=== PATIENT | female | born 1970 | race Hispanic/Latino ===

== ENCOUNTER 2023-04-02 11:31 | Emergency (ER) | payer MEDICAID, SELFPAY ==
[2023-04-02 11:40] VITALS: BP 141/91; PULSE 74; RESP 16; TEMP 36.6; O2SAT 98
--- NOTE | 2023-04-02 12:16 | ED.DIZZY ---
HPI - Dizziness General Chief Complaint: Dizziness Stated Complaint: Dizzy; Ringin in ears; Blurred vision Time Seen by Provider: 04/02/23 12:25 Source: patient Mode of arrival: ambulatory Limitations: language barrier (Rendering Equipment Tender used) History of Present Illness HPI Narrative: 52-year-old female presents with concern for 2 week history of it is sinus pressure, dizziness, ringing in the ears it is, blurred vision. She reports only symptom she is having right now is ringing in the ears. She says heat makes his symptoms worse, fracture helps the symptoms. She reports she has been staying well hydrated. She has a primary care provider. She reports she has never been diagnosed with high blood pressure or told she has had high blood pressure. She has taken ibuprofen for her symptoms without relief. She denies unilateral weakness, thunderclap headache MD elicited complaint: dizziness and other (Tinnitus) Related Data Allergies Allergy/AdvReac Type Severity Reaction Status Date / Time No Known Allergies Allergy Verified 04/02/23 11:35 Review of Systems Review of Systems: CONSTITUTIONAL: Denies malaise, chills, sweats, or fever. EYES: Reports blurry vision. Denies redness or discharge. ENT: Reports rhinorrhea, congestion, ringing in the ears. Denies sinus pain, otalgia or sore throat. Reports tinnitus CARDIOVASCULAR: Denies chest pain, palpitations, or edema. RESPIRATORY: Denies cough or dyspnea. GASTROINTESTINAL: Denies abdominal pain, nausea, vomiting, diarrhea GENITOURINARY: Denies dysuria or hematuria. Reports urine frequency SKIN: Denies rash or itching. MUSCULOSKELETAL: Denies back pain, joint pain. Reports myalgia. NEUROLOGIC: Denies numbness, weakness, or headache. Reports lightheadedness PSYCHIATRIC: Denies anxiety or depression. All systems reviewed & are unremarkable except as noted in HPI and below PMFSH Comments At time of signature, agree with nursing past medical, surgical, social and family history. There is no relevant family history pertinent to the presenting complaint Exam Narrative: GENERAL: Well-appearing, well-nourished, and in no acute distress. HEAD: Normocephalic, atraumatic. EYES: PERRLA, sclera clear, and EOMI. No nystagmus. ENT: Nares clear, turbinates erythematous, clear rhinorrhea, no epistaxis. Mucous membranes moist. TM pearly barr with sharp light reflex bilaterally; no tragal tenderness. Oropharynx without erythema or lesions. Tonsils not enlarged and without exudate. NECK: Supple. No lymphadenopathy. No jugular venous distension, thyromegaly, or carotid bruits. Carotids were easily palpable bilaterally. CHEST: No respiratory distress. Clear to auscultation. No bony deformities, no asymmetry. Speaks in full sentences. HEART: Regular rate and rhythm. No murmur heard. Normal peripheral pulses. EXTREMITIES: Normal range of motion. No edema. Normal strength and sensation. SKIN: Warm, dry, no visible rash. NEURO: Alert and oriented x3. No focal deficits. Cranial nerves II through XII grossly intact PSYCH: Normal mood and affect Course Course Emergency Course: Advised patient that her exam right now looks normal, however her symptoms do require further evaluation, patient would like to follow-up with her primary care doctor. Patient was given reasons to go to the emergency room for symptoms change or worsen Patient is aware of, understands and agrees to treatment plan. Anticipatory guidance given. Patient agrees to follow-up as directed and is aware of reasons to seek care at the emergency department. Portions of this record may have been created with voice recognition software Level of Care: Express Care Visit Vital Signs Vital signs: Vital Signs Temperature 97.8 F 04/02/23 11:40 Pulse Rate 74 04/02/23 11:40 Respiratory Rate 16 04/02/23 11:40 Blood Pressure 141/91 H 04/02/23 11:40 Pulse Oximetry 98 04/02/23 11:40 Oxygen Delivery Room Air 04/02/23 11:40
== END 2023-04-02 12:37 | disposition home or self-care (01) ==
PROVIDERS: Emergency Provider Nurse Practitioner; PCP Registered Nurse
DX: H93.13 Tinnitus, bilateral (principal)
CPT/HCPCS: 99203; G0463

== ENCOUNTER 2023-04-02 19:47 | Inpatient (IN) | payer MEDICAID, SELFPAY ==
--- NOTE | ~2023-04-02 | MR_ITS ---
MRI of the brain Clinical History: Dizziness Technique: Axial and sagittal T1-weighted images were acquired. These were followed by axial T2-weigh shea, diffusion weighted, gradient, and FLAIR images. Findings: No abnormal signal seen in the brain parenchyma. No acute infarct, intracranial hemorrhage, or mass lesion. Ventricles and subarachnoid spaces are unremarkable. Orbits are unremarkable. Paranasal sinuses and m astoid air cells are clear. Major intracranial flow voids are intact. Sagittal midline structures are intact. IMPRESSION: Unremarkable exam. Reviewed, dictated and finalized at location M. IMPRESSION: Unremarkable exam.
--- NOTE | ~2023-04-02 | XR_ITS ---
EXAMINATION: XR chest 1V portable Exam Date/Time: 04/02/2023 21:35 CDT HISTORY: chest CONGESTION WITH WEAKNESS X 2 WEEKS Comparison: None. RESULT: Lines, tubes, and devices: None. Lungs and pleura: Patchy, subsegmental opacities in the left lower lung. Cardiomediastinal silhouette: Stable. Other: No acute osseous or upper abdominal finding. IMPRESSION: Patchy airspace opacities in the left lower lung may represent atelectasis or pneumonia. Reviewed, dictated and finalized at location K. IMPRESSION: Patchy airspace opacities in the left lower lung may represent atelectasis or p neumonia.
--- NOTE | ~2023-04-02 | CT_ITS ---
EXAMINATION: CTA brain carotid DATE: 04/02/2023 22:58 INDICATION: Disequilibrium TECHNIQUE: Computed tomographic angiography (CTA) of the head was performed without and with 100 mL O mnipaque-350 intravenous contrast. CTA of the neck was performed with intravenous contrast. Automated exposure control and iterative reconstruction technique were employed. The dose-length product was 1 608.59 mGy-cm. Maximum intensity projection and volume rendered 3D-reconstructions were created by cheerlle quinones technologist on a separate workstation. COMPARISON: None. FINDINGS: CT BRAIN: No acute large vessel infarct, intracranial hemorrhage, mass, or hydrocephalus. CTA HEAD: No large vessel occlusion, aneurysm, high flow vascular malformation, nidus or extravasation. Persist ent origin of the right posterior cerebral artery. Patent cerebral veins. Symmetric parenchymal enhancement. CTA NECK: Aortic arch and proximal great vessels: Bovine arch. Right common carotid, carotid bifurcation, and internal carotid artery: No atherosclerotic plaque.The re is 0% stenosis of the proximal right internal carotid artery relative to normal distal artery lume n diameter (NASCET criteria). Left common carotid, carotid bifurcation, and internal carotid artery: No atherosclerotic plaque.Ther e is 0% stenosis of the proximal left internal carotid artery relative to normal distal artery lumen diameter (NASCET criteria). Vertebral arteries: No significant plaque or stenosis. Vertebral arteries co-dominant. Other findings: 8mm right thyroid lobe nodule, 7 mm thyroid isthmus nodule, no additional workup requ ired at this time for these nodules. Scattered groundglass opacities in the lungs. IMPRESSION: No acute intracranial process. No large vessel occlusion. No significant carotid or vertebral stenosi s. Scattered groundglass opacities in the lungs may represent atelectasis, edema, or pneumonitis. Reviewed, dictated and finalized at location K. IMPRESSION: No acute intracranial process. No large vessel occlusion. No significant caroti d or vertebral stenosis. Scattered groundglass opacities in the lungs may represent atelectasis, edema, or pneumonitis.
[2023-04-02 19:55] VITALS: BP 143/86; PULSE 72; RESP 18; TEMP 36.7; O2SAT 96
--- NOTE | 2023-04-02 21:38 | ECG_ITS ---
Measurements Intervals [place] Rate: 70 P: 4 NC: 127 QRS: -24 QRSD: 112 T: 0 QT: 405 QTc: 439 Interpretive Statements SINUS RHYTHM BORDERLINE LEFT AXIS DEVIATION [QRS AXIS < -20] INCOMPLETE RIGHT BUNDLE BRANCH BLOCK [90+ ms QRS DURATION, TERMINAL R IN V1/V2, 40+ ms S IN I/aVL/V4/V5/V6] VOLTAGE CRITERIA FOR LVH [MEETS CRITERIA IN ONE OF: R(aVL), S(V1), R(V5), R(V5/V6)+S(V1)] NO PREVIOUS ECG AVAILABLE FOR COMPARISON Electronically Signed On 04-03-2023 13:28:02 CDT by Lamin Tolbert M.D.
[2023-04-02 22:04] LABS: Appearance Urine Clear (Clear); Bilirubin Urine Negative (Negative); Blood Urine Negative (Negative); Color Urine Yellow (Yellow); Glucose Urine UA 3+ mg/dL (Negative); Ketones Urine 4+ mg/dL (Negative); Leukocyte Esterase Ur Negative LEU/UL (Negative); Nitrate Urine Negative (Negative); Protein Urine Negative (Negative); Specific Grav Ur 1.041 (1.001-1.035); Urobilinogen Urine 0.2 mg/dL (<2.0)
[2023-04-02 22:05] LABS: Add Urine Microscopic? NO
[2023-04-02] MEDS: SODIUM CHLORIDE 0.9% IV 2,000 ML 999 ML IV CONT (22:13)
[2023-04-02 22:22] LABS: Basophils Absolute Auto 0.1 K/mm3 (0.0-0.1); Basophils Percent Auto 0.8 % (0.2-1.2); Eosinophils Absolute Auto 0.1 K/mm3 (0-0.3); Eosinophils Percent Auto 1.1 % (0-4.4); Hematocrit 45.1 % (37.0-47.0); Hemoglobin 15.3 g/dL (12.0-15.0); Immature Granulocyte Absolute 0.02 K/mm3 (0.00-0.031); Immature Granulocyte Percent A 0.3 % (0-0.5); Lymphocytes Absolute Auto 3.14 K/mm3 (0.9-3.2); Lymphocytes Percent Auto 39.8 % (18.3-44.2); Mean Corpuscular HGB Conc 33.9 g/dl (32-36); Mean Corpuscular Hemoglobin 27.9 pg (26-34); Mean Corpuscular Volume 82.1 fl (80-100); Mean Platelet Volume 12.4 fl (7.4-10.4); Monocytes Absolute Auto 0.5 K/mm3 (0.1-0.6); Monocytes Percent Auto 6.7 % (2.6-8.5); Neutrophils Percent Auto 51.3 % (45.5-73.1); Platelet Count Result 261 k/mm3 (150-375); Red Blood Count 5.49 M/mm3 (4.2-5.4); Red Cell Distribution Width 13.8 % (11.5-14.5); White Blood Count 7.9 K/mm3 (4.5-10.0)
[2023-04-02 22:38] LABS: Ethanol < 10 mg/dL (<10)
[2023-04-02 22:39] LABS: Alanine Aminotransferase 30 U/L (6-35); Albumin Level 4.5 g/dL (3.5-5.1); Alkaline Phosphatase 248 U/L (38-126); Anion Gap 16 mmol/L (8-16); Aspartate Amino Transferase 30 U/L (14-36); Bilirubin,Total 0.6 mg/dL (0.2-1.3); Blood Urea Nitrogen 15 mg/dL (7-17); Calcium 9.4 mg/dL (8.4-10.2); Carbon Dioxide 24 mmol/L (22-30); Chloride 92 mmol/L (98-107); Estimated CRCL calculation 94 ml/min; Estimated Glomerular Filt Rate > 60; Glucose 407 mg/dL (65-110); Magnesium 1.8 mg/dL (1.6-2.3); Potassium 3.6 mmol/L (3.4-5.0); Sodium 132 mmol/L (137-145)
--- NOTE | 2023-04-02 22:53 | ED.GENADULT ---
HPI - General Adult General Chief complaint: Unspecified Stated complaint: weakness/dizziness Time Seen by Provider: 04/02/23 21:01 History of Present Illness HPI narrative: Lao-speaking female. Translation service used for all communication. Stomr # [id number] this is a 52-year-old Lao-speaking female presenting with dizziness for the last 2 weeks. She says it feels like she is drunk. Every time she walks she cannot walk in a straight line. She has noticed intermittent hearing loss in her left and right ear with some tinnitus. She denies double vision, dysarthria dysphagia. She does note that she has had bilateral hand numbness and tingling. patient denies fevers chills chest pain difficulty breathing or abdominal pain. She has not seen a primary care physician and does not believe she has any health problems. patient was seen in urgent care and given symptomatic treated for sinusitis. Related Data Allergies Allergy/AdvReac Type Severity Reaction Status Date / Time No Known Allergies Allergy Verified 04/02/23 11:35 Exam Narrative: APPEARANCE: No apparent distress. Head: atraumatic. Tympanic membranes are normal EYES: EOMI, pupils are sara NOSE: Atraumatic NECK: Trachea midline RESPIRATORY: No increased rate of breathing , clear to auscultation CARDIOVASCULAR: RRR, ABDOMINAL: Non-distended soft nontender no guarding or rebound MUSCULOSKELETAl: No obvious deformities NEURO: Alert. Cranial nerves 2-12 grossly intact. Sensation light touch, motor function cerebellar function intact for 4 extremities. patient is unable to ambulate without veering to the right and almost falling SKIN:: Warm, dry. Normal color PSYCHIATRIC: Normal affect Course Vital Signs Vital signs: Vital Signs Temperature 98.0 F 04/02/23 19:55 Pulse Rate 72 04/02/23 19:55 Respiratory Rate 18 04/02/23 19:55 Blood Pressure 143/86 H 04/02/23 19:55 Pulse Oximetry 96 04/02/23 19:55 Oxygen Delivery Room Air 04/02/23 19:55 Temperature 98.0 F 04/02/23 19:55 Pulse Rate 68 04/02/23 23:33 Respiratory Rate 19 04/02/23 23:33 Blood Pressure 147/91 H 04/02/23 23:33 Pulse Oximetry 98 04/02/23 23:33 Oxygen Delivery Room Air 06/26/23 19:55 Medical Decision Making MDM Narrative Medical decision making narrative: -Presentation:52-year-old female presenting with disequilibrium and inability to walk due to a leftward lean. Her episodes are constant and there are no triggers. She has no other findings on her neurologic exam. Stroke workup has been ordered. Symptoms have been ongoing for 2 weeks and there is no intervention made at this time. -DDX includes but is not limited to: Peripheral vestibular insult, central cause/stroke, dehydration -Co-morbidities complicating care: obesity, denies medical problems but has not seen a physician in many years -Social determinants of health: patient works for [employer], lives with her son -External Chart Review: review of urgent care note from earlier today -Hx from independent Sources: family bedside -Independent interpretation of studies: CBC normal. Metabolic panel shows elevated glucose the patient likely has undiagnosed diabetes. Urine not indicative of infection. Alcohol negative. Chest x-ray showed patchy opacities in the lower lung but the patient has no respiratory symptoms, fevers or white blood cell count. Likely atelectasis. CT head and CTA normal. Independent EKG interpretation: Rhythm [sinus], Rate [70], [place] -[normal], [place] -[normal], QRS [narrow], QTC [normal], T waves -[negative for concerning inversions], ST Segments - [Negative for concerning elevations] Final interpretations: [Normal Sinus Rhythm] -Discussion of Management/Consultants: Geoff-hospitalist, -Dx tests considered but not ordered: -Procedures: -Interventions: 3 L normal saline, 25 mg meclizine -Shared decision making / Disposition: Give
[2023-04-02 22:59] LABS: INR 0.9; Prothrombin Time 12.6 Seconds (11.1-14.7)
[2023-04-02 23:00] LABS: Partial Thromboplastin Time 26.6 SECONDS (22.3-36.8)
[2023-04-02 23:11] LABS: Amphetamine Screen Urine Negative (Negative); Barbiturate Screen Urine Negative (Negative); Benzodiazepines Screen Urine Negative (Negative); Cannabinoid Screen Urine Negative (Negative); Cocaine Screen Urine Negative (Negative); Methadone Screen Urine Negative (Negative); Opiate Screen Urine Negative (Negative); Phencyclidine Screen Urine Negative (Negative)
[2023-04-02] MEDS: MECLIZINE HCL 25 MG TABLET PO (23:30)
[2023-04-02 23:33] VITALS: BP 147/91; PULSE 68; RESP 19; O2SAT 98
[2023-04-03] VITALS (7 sets, daily range): BP systolic 123–140; BP diastolic 75–80; PULSE 64–71; RESP 16–20; TEMP 36.1–36.3; O2SAT 96–98; BMI 35.1
[2023-04-03] MEDS: SODIUM CHLORIDE 0.9% IV 1,000 ML 999 ML IV CONT (00:17)
[2023-04-03] MEDS: LACTATED RINGERS 1,000 ML 125 ML IV CONT (01:18)
[2023-04-03 06:28] LABS: Anion Gap 10 mmol/L (8-16); Blood Urea Nitrogen 12 mg/dL (7-17); Calcium 8.3 mg/dL (8.4-10.2); Carbon Dioxide 20 mmol/L (22-30); Chloride 107 mmol/L (98-107); Estimated CRCL calculation 142 ml/min; Estimated Glomerular Filt Rate > 60; Glucose 236 mg/dL (65-110); Potassium 3.9 mmol/L (3.4-5.0); Sodium 137 mmol/L (137-145)
[2023-04-03 07:28] LABS: Folic Acid 7.9 ng/mL (2.76->20)
[2023-04-03 07:30] LABS: Hemoglobin A1C 12.4 % (<5.7)
[2023-04-03 07:44] LABS: Glucose Point of Care 221 mg/dl (65-105)
[2023-04-03] MEDS: LORATADINE 10 MG TABLET PO (08:27)
[2023-04-03] MEDS: INSULIN ASPART (*BKC) 100 UNITS/ML SUB-Q ×2 (08:27→12:11)
[2023-04-03] MEDS: MECLIZINE HCL 25 MG TABLET PO ×3 (08:27→16:42)
[2023-04-03] MEDS: FLUTICASONE PROPIONATE 0.05% NA SPR 16 GM BTL (*BKC) 2 SPRAY NASAL (08:48)
--- NOTE | 2023-04-03 09:59 | PM.IMHP ---
H&P: HPI History of Present Illness Date/Time: 04/03/23 09:59 Chief Complaint: Dizziness Narrative: ?Sinhala-speaking female.? Niece was present in the room to translate. ?this is a 52-year-old Sinhala-speaking female presenting with dizziness for the last 2 weeks.? She has noticed intermittent hearing loss in her left and right ear with some tinnitus.? She denies double vision, dysarthria dysphagia.? patient denies fevers chills chest pain difficulty breathing or abdominal pain.? Denies any earache, ear discharge, sinusitis. Review of Systems Review of Systems: Twelve point review of system negative other than HPI PMFSH Social History Social History Smoking status: Never smoker Alcohol intake: never Substance use: never Lack of Transportation: No Lack of Food: Never True Current Housing: I Have Housing Concerned About Future Housing: No Difficulty Paying Gas/Electric Bills: No Difficulty Paying for Meds: No Currently Unemployed: No Education: Grade School Difficulty w/ Childcare or Family Care: No Spiritual care concerns: No Meds Home Medications and Allergies Home Medications Medication Instructions Recorded Confirmed Type cetirizine 10 mg tablet 10 mg PO DAILY #30 tabs 04/02/23 04/03/23 Rx fluticasone propionate 50 2 spray intranasal DAILY 14 days 04/02/23 04/03/23 Rx mcg/actuation nasal #15.8 mL spray,suspension (Flonase Allergy Relief) Allergies Allergy/AdvReac Type Severity Reaction Status Date / Time No Known Allergies Allergy Verified 04/02/23 11:35 Vital Signs Vital Signs - 24 hr 04/02/23 19:55 04/02/23 23:33 04/03/23 01:00 Temperature 98.0 F 97.3 F L Pulse Rate 72 68 64 Respiratory Rate 18 19 18 Blood Pressure 143/86 H 147/91 H 140/80 Pulse Oximetry 96 98 98 Oxygen Delivery Room Air 04/03/23 04:00 04/03/23 06:00 04/03/23 09:40 Temperature 96.9 F L Pulse Rate 65 69 Respiratory Rate 18 Blood Pressure 133/79 Pulse Oximetry 96 96 Oxygen Delivery Room Air Exam Narrative: APPEARANCE: No apparent distress. Head: atraumatic. Tympanic membranes are normal EYES: EOMI, pupils are sara EARS: Some hearing loss in left ear NOSE: Atraumatic NECK: Trachea midline RESPIRATORY: No increased rate of breathing , clear to auscultation CARDIOVASCULAR: RRR, ABDOMINAL: Non-distended soft nontender no guarding or rebound MUSCULOSKELETAl: No obvious deformities NEURO: Alert. Cranial nerves 2-12 grossly intact. Sensation light touch, motor function cerebellar function intact for 4 extremities. patient is unable to ambulate without veering to the right and almost falling SKIN:: Warm, dry. Normal color PSYCHIATRIC: Normal affect H&P: Results Labs Labs: Short CBC 04/02/23 Range/Units 22:11 WBC 7.9 (4.5-10.0) K/mm3 Hgb 15.3 H (12.0-15.0) g/dL Hct 45.1 (37.0-47.0) % Plt Count 261 (150-375) k/mm3 BMP 04/02/23 04/03/23 22:11 05:59 Sodium 132 L 137 Potassium 3.6 3.9 Chloride 92 L 107 Carbon Dioxide 24 20 L BUN 15 12 Creatinine 0.60 L 0.40 L Glucose 407 H 236 H Calcium 9.4 8.3 L Liver Function 04/02/23 Range/Units 22:11 Total Bilirubin 0.6 (0.2-1.3) mg/dL AST 30 (14-36) U/L ALT 30 (6-35) U/L Alkaline Phosphatase 248 H (38-126) U/L Albumin 4.5 (3.5-5.1) g/dL Urine 04/02/23 Range/Units 21:57 Urine Color Yellow (Yellow) Urine Appearance Clear (Clear) Urine pH 5.0 (5.0-9.0) Ur Specific [place] 1.041 H (1.001-1.035) Urine Protein Negative (Negative) mg/dL Urine Glucose (UA) 3+ H (Negative) mg/dL Assessment and Plan Assessment and plan (1) Disequilibrium syndrome: Code(s): E87.8 - Other disorders of electrolyte and fluid balance, not elsewhere classified Status: Acute Assessment and Plan: Appears to be BPPV. Will try meclizine. CT head ne
--- NOTE | 2023-04-03 10:21 | WPDNEURCNPN ---
Assessment and Plan Assessment and plan (1) Disequilibrium syndrome: Code(s): E87.8 - Other disorders of electrolyte and fluid balance, not elsewhere classified Status: Acute (2) Diabetes: Code(s): E11.9 - Type 2 diabetes mellitus without complications Status: Acute Plan Ms. Cool is a 52 year old with newly diagnsed diabetes presenting due to two weeks of dizziness as well as tinntus and hearing loss. Suspect most likely to be related to inner ear dysfunction such as BPPV or Meniere's disease. Could also be secondary to significant hyperglycemia. Will need neuroimaging to exclude central cause of vertigo. - MRI brain w/o contrast - Treat headache with Naproxen or Toradol if needed Consult date: 04/03/23 Time Seen: 10:21 Reason for consult: Dizziness HPI: Vee Rodgers is a 52 year old female with a history of newly diagnosed diabetes mellitus presenting for evaluation of dizziness. Patient reports that two weeks ago she started having dizziness. It has been intermittent since then but is worse with sitting up. When she lays down the dizziness is better. She denies any double vision, nausea, or vomiting. She has had a significant, throbbing, bitemporal headache for sometime now as well. She denies any prior history of migraines. She denies any significant change in dizziness with moving her head to the side. She also noted tinnitus and hearing loss in the left ear. When she presented to the ED her blood pressure was in the 140s systolic. Neurological exam has been non-focal since her admission. CT head and CTA brain/carotid were unrevealing as well. MRI brain has not been done yet. Her A1c was from admission is 12.4. Her blood sugar yesterday was as high as 407. Review of Systems Constitutional: Constitutional: Denies chills, Denies fever(s) and Denies weight loss Eyes: Eyes: Denies diplopia and Denies loss of vision ENT: Reports dizziness, Reports hearing loss and Reports tinnitus Cardiovascular: Cardiovascular: Denies chest pain, Denies syncope and Denies dyspnea Respiratory: Respiratory: Denies cough, Denies dyspnea and Denies wheezing Gastrointestinal: Gastrointestinal: Denies abdominal pain, Denies change in bowel habits and Denies vomiting Genitourinary: Genitourinary: Denies urinary incontinence Musculoskeletal: Musculoskeletal: Denies arthralgias and Denies joint swelling Integumentary/Breasts: Skin/Breast: Denies new lesions and Denies rash Neurologic: Reports as per HPI, Denies dizziness, Denies syncope and Denies loss of vision Psychiatric: Psychiatric: Denies anxiety and Denies depression Endocrine: Endocrine: Denies cold intolerance and Denies heat intolerance Hematologic/Lymphatic: Hematologic/Lymphatic: Denies easy bleeding and Denies easy bruising Allergic/Immunologic: Allergic/Immunologic: Denies no additional allergic/immunologic complaints and Denies wheezing PMFSH Social History Social History Smoking status: Never smoker Alcohol intake: never Substance use: never Lack of Transportation: No Lack of Food: Never True Current Housing: I Have Housing Concerned About Future Housing: No Difficulty Paying Gas/Electric Bills: No Difficulty Paying for Meds: No Currently Unemployed: No Education: Grade School Difficulty w/ Childcare or Family Care: No Spiritual care concerns: No Meds Home Medications and Allergies Home Medications Medication Instructions Recorded Confirmed Type cetirizine 10 mg tablet 10 mg PO DAILY #30 tabs 04/02/23 04/03/23 Rx fluticasone propionate 50 2 spray intranasal DAILY 14 days 04/02/23 04/03/23 Rx mcg/actuation nasal #15.8 mL spray,suspension (Flonase Allergy Relief) Allergies Allergy/AdvReac Type Severity Reaction Status Date / Time No Known Allergies Allergy Verified 04/02/23 11:35 Vital Signs Vital Signs - 24 hr 04/02/23
[2023-04-03 11:30] LABS: Glucose Point of Care 254 mg/dl (65-105)
[2023-04-03] MEDS: INSULIN ASPART (*BKC) 100 UNITS/ML 7 UNITS SUB-Q ×2 (12:12→16:42)
--- NOTE | 2023-04-03 16:30 | WPDCN ---
Assessment and Plan Assessment and plan (1) Labyrinthine dysfunction of left ear: Code(s): H83.2X2 - Labyrinthine dysfunction, left ear Status: Acute Assessment and Plan: could represent labyrinth tinnitus. Will in patient if possible, would recommend audiologic evaluation as well as physical therapy to rule out any positional component such as BPPV. In healthy adult I would typically try 60 mg of prednisone for 10 days to come down any nerve inflammation. It would be reasonable to try a lower dose as well such as a Medrol Dosepak to see if it helps her. If the patient feels better and is discharged I am happy to see her somewhat urgently and order a complete audiologic evaluation as well. HPI Data of Consult Date/Time: 04/03/23 16:30 Requesting Physician: Patito Tellez DO Primary Care Provider: Megan Florian, STRATEGIC ACCOUNT EXECUTIVE Consult Narrative Narrative: Vee Rodgers is a 52 year old female with an episode of dizziness left-sided hearing loss and a whooshing sound referring cut engine like sound. Reports overall feeling better. A CT personally reviewed no intracranial abnormalities no otolaryngologic abnormalities noted per my read. Review of Systems Review of Systems: All systems reviewed & are unremarkable except as noted in HPI and below PMFSH Social History Social History Smoking status: Never smoker Alcohol intake: never Substance use: never Lack of Transportation: No Lack of Food: Never True Current Housing: I Have Housing Concerned About Future Housing: No Difficulty Paying Gas/Electric Bills: No Difficulty Paying for Meds: No Currently Unemployed: No Education: Grade School Difficulty w/ Childcare or Family Care: No Spiritual care concerns: No Meds Home Medications and Allergies Home Medications Medication Instructions Recorded Confirmed Type cetirizine 10 mg tablet 10 mg PO DAILY #30 tabs 04/02/23 04/03/23 Rx fluticasone propionate 50 2 spray intranasal DAILY 14 days 04/02/23 04/03/23 Rx mcg/actuation nasal #15.8 mL spray,suspension (Flonase Allergy Relief) Allergies Allergy/AdvReac Type Severity Reaction Status Date / Time No Known Allergies Allergy Verified 04/02/23 11:35 Vital Signs Vital Signs - 24 hr 04/02/23 19:55 04/02/23 23:33 04/03/23 01:00 Temperature 36.7 C 36.3 C L Pulse Rate 72 68 64 Respiratory Rate 18 19 18 Blood Pressure 143/86 H 147/91 H 140/80 Pulse Oximetry 96 98 98 Oxygen Delivery Room Air 04/03/23 04:00 04/03/23 06:00 04/03/23 09:40 Temperature 36.1 C L Pulse Rate 65 69 Respiratory Rate 18 Blood Pressure 133/79 Pulse Oximetry 96 96 Oxygen Delivery Room Air 04/03/23 08:00 04/03/23 13:53 Temperature 36.3 C L Pulse Rate 71 Respiratory Rate 20 Blood Pressure 123/75 Pulse Oximetry 97 Oxygen Delivery Room Air Exam Narrative: Normal ENT exam Results Labs 04/02/23 22:11 04/03/23 05:59 Labs: Short CBC 04/02/23 Range/Units 22:11 WBC 7.9 (4.5-10.0) K/mm3 Hgb 15.3 H (12.0-15.0) g/dL Hct 45.1 (37.0-47.0) % Plt Count 261 (150-375) k/mm3 [facility] [place] 04/02/23 04/03/23 22:11 05:59 Sodium 132 L 137 Potassium 3.6 3.9 Chloride 92 L 107 Carbon Dioxide 24 20 L BUN 15 12 Creatinine 0.60 L 0.40 L Glucose 407 H 236 H Calcium 9.4 8.3 L Liver Function 04/02/23 Range/Units 22:11 Total Bilirubin 0.6 (0.2-1.3) mg/dL AST 30 (14-36) U/L ALT 30 (6-35) U/L Alkaline Phosphatase 248 H (38-126) U/L Albumin 4.5 (3.5-5.1) g/dL Urine 04/02/23 Range/Units 21:57 Urine Color Yellow (Yellow) Urine Appearance Clear (Clear) Urine pH 5.0 (5.0-9.0) Ur Specific [place] 1.041 H (1.001-1.035) Urine Protein Negative (Negative) mg/dL Urine Glucose (UA) 3+ H (Negative) mg/dL
[2023-04-03 16:35] LABS: Glucose Point of Care 171 mg/dl (65-105)
[2023-04-03] MEDS: INSULIN GLARGINE (*BKC) 100 UNITS/ML 20 UNITS SUB-Q (21:06)
[2023-04-03 21:08] LABS: Glucose Point of Care 166 mg/dl (65-105)
[2023-04-04 06:00] VITALS: BP 120/77; PULSE 64; RESP 14; TEMP 35.9; O2SAT 97
[2023-04-04 07:45] LABS: Glucose Point of Care 221 mg/dl (65-105)
[2023-04-04] MEDS: INSULIN ASPART (*BKC) 100 UNITS/ML SUB-Q ×2 (08:19→11:45)
[2023-04-04] MEDS: INSULIN ASPART (*BKC) 100 UNITS/ML 7 UNITS SUB-Q ×3 (08:20→16:50)
[2023-04-04] MEDS: FLUTICASONE PROPIONATE 0.05% NA SPR 16 GM BTL (*BKC) 2 SPRAY NASAL (08:21)
[2023-04-04] MEDS: ENOXAPARIN 40 MG/0.4 ML SYRINGE SUB-Q (08:21)
[2023-04-04] MEDS: LORATADINE 10 MG TABLET PO (08:22)
[2023-04-04] MEDS: MECLIZINE HCL 25 MG TABLET PO ×3 (08:22→16:50)
[2023-04-04 11:40] LABS: Glucose Point of Care 209 mg/dl (65-105)
[2023-04-04 14:00] VITALS: BP 119/81; PULSE 64; RESP 14; TEMP 35.9; O2SAT 98
[2023-04-04 15:00] VITALS: BMI 35.1
--- NOTE | 2023-04-04 15:06 | PM.DS ---
DS: Admitting Diagnosis Discharge Date 04/04/2023 Admitting Diagnosis Dizziness DS: Discharge Diagnosis Discharge Diagnosis (1) Disequilibrium syndrome: Code(s): E87.8 - Other disorders of electrolyte and fluid balance, not elsewhere classified Status: Acute Assessment and Plan: Appears to be BPPV. Will try meclizine. CT head negative for any acute findings. She does have some hearing loss in her left ear and has noticed ringing in her left ear for last 2 weeks. Will consult ENT. pt to follow with ENT MD as outpatient. (2) Diabetes: Code(s): E11.9 - Type 2 diabetes mellitus without complications Status: Acute Assessment and Plan: New finding. A1c 12.4. Pt to dc with 20 units of lantus or levemir at night and metformin Pt saw DM educator prior to Dc. DM diet and DM medications compliance adviced prior to DC DS: Summary Hospital Course Hospital Course: 52-year-old Armenian-speaking female presenting with dizziness for the last 2 weeks.? She has noticed intermittent hearing loss in her left and right ear with some tinnitus.? She denies double vision, dysarthria dysphagia. Pt found to be a newly diagnosed DM. Dizzines liley secondary to new DM rather than anything else pt seen by neurology and ENT. Pt can use meclizine and follow up with ENT MD. Time Spent with Patient Time attestation: Total time spent providing and/or coordinating discharge services: Exam Narrative: APPEARANCE: No apparent distress. Head: atraumatic. Tympanic membranes are normal EYES: EOMI, pupils are sara EARS: Some hearing loss in left ear NOSE: Atraumatic NECK: Trachea midline RESPIRATORY: No increased rate of breathing , clear to auscultation CARDIOVASCULAR: RRR, ABDOMINAL: Non-distended soft nontender no guarding or rebound MUSCULOSKELETAl: No obvious deformities NEURO: Alert. Cranial nerves 2-12 grossly intact. Sensation light touch, motor function cerebellar function intact for 4 extremities. patient is unable to ambulate without veering to the right and almost falling SKIN:: Warm, dry. Normal color PSYCHIATRIC: Normal affect DS: Data Data Completed and Pending Labs on day of discharge: Labs from last 24 hours 04/04/23 04/04/23 04/03/23 11:29 07:43 20:07 POC Capillary Glucose 209 H 221 H 166 H 04/03/23 16:29 POC Capillary Glucose 171 H Discharge Plan Discharge Attending physician on discharge: Rosa M Nielsen Consulting providers: Zuleika Auguste; Aj Henry; Nomi Rivera; Sharad Aldridge; Lamin Tolbert; Joe Hernandez Discharging Clinician: Rosa M Nielsen Anticipated Discharge Date/Time: 04/04/23 14:58 Patient Disposition: Home, Self-Care Activity: as tolerated Diet: diabetic Discharge Instructions: Take these discharge orders to outpatient therapy center of choice for physical therapy evaluations and treatment; vestibular therapy. Thank you. Patient Instructions: Type 2 Diabetes in Adults: New Diagnosis (DC), Meal Planning with Diabetes Exchanges (DC), Diabetes and Exercise (DC), Type 2 Diabetes Management for Adults (DC), Type 2 Diabetes Management for Adults (GEN) Stand Alone Forms: General Discharge Information, Work/School Release IP Follow-up/Referrals: Anival,MINDY Guzman [Primary Care Provider] - Aj Henry MD [Physician] - Discharge Medications: New insulin glargine [Lantus U-100 Insulin] 100 unit/mL Solution 20 unit subcut HS Qty: 1 0RF meclizine 25 mg Tablet 25 mg PO TID PRN (Reason: Dizziness) Qty: 30 0RF (DME) blood-glucose meter [OneTouch Verio Flex meter] Misc Qty: 1 0RF Rx Instructions: May substitute to in-stock meter and/or covered by insurance. Use As Directed (DME) OneTouch Verio test strips Strip Qty: 1 0RF Rx Instructions: May substitute to in-stock and/or covered by insurance strips. Use As Directed (DME) pen needle, diabetic [BD Ultra-F
[2023-04-04 16:29] LABS: Glucose Point of Care 142 mg/dl (65-105)
--- NOTE | 2023-04-05 10:41 | PC.NURSE ---
son Sridhar [phone] called to say that pharmacy would not give them the lantus or pen needles. he states the pharmacist told them the order has been cancelled. it looks active on this end. Message given to Aníbal in the office for Dr. Nielsen to correct.
== END 2023-04-04 17:15 | disposition home or self-care (01) | DRG 111 ==
LOC: ANHED 23:04 → ANH3MEDSUR 04-03 00:27
PROVIDERS: Admitting Provider Internal Medicine; Emergency Provider Emergency Medicine; PCP Registered Nurse; Visit Provider Family Medicine
DX: H83.2X2 Labyrinthine dysfunction, left ear (principal); E87.8 Other disorders of electrolyte and fluid balance, not elsewhere classified; E11.9 Type 2 diabetes mellitus without complications
CPT/HCPCS: 36415; 70496; 70498; 70551; 71045; 80048; 80053; 80307; 81003; 82607; 82746; 82948; 83036; 83735; 85025; 85610; 85730; 93005; 97161; 99285; A9270; J1650; J1815; J7030; J7120; Q9967